=== PATIENT | female | born 1970 | race Caucasian/White ===

== ENCOUNTER 2024-03-15 06:21 | Emergency (ER) | payer OTHER, SELFPAY ==
--- NOTE | ~2024-03-15 | CT_ITS ---
CT abdomen pelvis w con Ordering provider: Sugey Islas MD History: 54 years Female with . epigastric TTP; also low pelvic firmness/mass? . Comparison: None. Technique: CT abdomen and pelvis with IV and without oral contrast. Automated exposure control and it erative reconstruction technique were employed. The dose-length product was 493.99 mGy-cm. 100 mL Omn ipaque 350 was given IV. Findings: VISUALIZED LOWER CHEST: Bilateral dependent atelectatic changes. UPPER ABDOMINAL ORGANS: Liver: Normal. Gallbladder: Normal. Spleen: Normal. Stomach/duodenum: Normal. Pancreas: Normal. Adrenals: Normal. Kidneys: 1.2 cm right mid pole cyst. PELVIC ORGANS: The bladder is normal. Enlarged uterus with mass seen anteriorly which is enhancing s uggestive of fibroid measuring 5.8 x 6.2 cm. Hemorrhagic changes is not excluded. Smaller fibroid als o seen anteriorly measuring 2.7 x 3.7 cm. Further evaluation advised. Right ovarian cyst is noted measuring 3.7 x 3.1 cm.. BOWEL AND MESENTERY: Colon: No evidence of diverticulitis. Normal appendix. Small Bowel: Normal. No obstruction. Peritoneum/mesentery: No free air or free fluid. No mesenteric lymphadenopathy. RETROPERITONEUM: Normal aorta. No retroperitoneal lymphadenopathy. MUSCULOSKELETAL: Superficial soft tissues: The superficial soft tissues are normal. Bones: Normal spine. IMPRESSION: 1. Large uterine fibroid with hyperdense center which is most likely hemorrhagic fibroid. Further ev aluation advised. Smaller one is also seen anteriorly. Right ovarian cyst. 2. No evidence of appendicitis, diverticulitis or intestinal obstruction Reviewed, dictated and finalized at location A. IMPRESSION: 1. Large uterine fibroid with hyperdense center which is most likely hemorrhag ic fibroid. Further evaluation advised. Smaller one is also seen anteriorly. Ri ght ovarian cyst. 2. No evidence of appendicitis, diverticulitis or intestinal obstruction
[2024-03-15 06:42] VITALS: BP 125/74; PULSE 80; RESP 18; O2SAT 100
[2024-03-15 07:09] LABS: Basophils Percent Auto 0.3 % (0.2-1.2); Eosinophils Absolute Auto 0.1 K/mm3 (0-0.3); Eosinophils Percent Auto 1.2 % (0-4.4); Hematocrit 38.8 % (37.0-47.0); Hemoglobin 12.4 g/dL (12.0-15.0); Immature Granulocyte Absolute 0.03 K/mm3 (0.00-0.031); Immature Granulocyte Percent A 0.3 % (0-0.5); Lymphocytes Absolute Auto 1.24 K/mm3 (0.9-3.2); Lymphocytes Percent Auto 14.4 % (18.3-44.2); Mean Corpuscular Hemoglobin 26.1 pg (26-34); Mean Corpuscular Volume 81.7 fl (80-100); Mean Platelet Volume 10.7 fl (7.4-10.4); Monocytes Absolute Auto 0.7 K/mm3 (0.1-0.6); Monocytes Percent Auto 7.6 % (2.6-8.5); Neutrophils Absolute Auto 6.5 K/mm3 (1.3-6.7); Neutrophils Percent Auto 76.2 % (45.5-73.1); Platelet Count Result 303 k/mm3 (150-375); Red Blood Count 4.75 M/mm3 (4.2-5.4); White Blood Count 8.6 K/mm3 (4.5-10.0)
--- NOTE | 2024-03-15 07:15 | ED.ABDPAIN ---
HPI - Abdominal Pain General Chief Complaint: Abdominal Pain Stated Complaint: medial upper abdominal pain Time Seen by Provider: 03/15/24 07:13 Source: patient and family Mode of arrival: ambulatory Limitations: no limitations History of Present Illness HPI narrative: Patient presents with complaint of epigastric abdominal pain starting on Thursday and progressively getting worse. She describes it as a dull pain in with waves of stabbing pain. She denies any radiation either into the rest of her abdomen, into her chest, or toward her back. She denies any chest pain. She states when she has waves of pain it is 9/10 in severity. This has never happened before. She has never seen a user interface designer or had an EGD. She denies any abdominal surgeries. She started taking Ozempic in November. She denies any cough, sick contacts. Her last bowel movement was yesterday at approximately 1:00 p.m. she denies any diarrhea, constipation, or blood. Her last oral intake was yesterday approximately 6:00 p.m.. She does not really have an appetite. No fevers. She continues to pass flatus. Related Data Allergies Allergy/AdvReac Type Severity Reaction Status Date / Time erythromycin base Allergy Mild RASH Verified 03/15/24 07:17 [facility] Family History Family History (Updated 07/24/20 @ 16:02 by Ilda Stewart MD) Father Diabetes mellitus Heart disease Hypertension Cancer of kidney Social History Social History Social History: Smoking status: Never smoker Second hand tobacco smoke exposure: No Alcohol intake: current Drinks per week: 2 Substance use: never Substance use type: does not use Living arrangements: with family Occupation/Education: occupation Gender identity (if verbalized by the patient): Female Sexual Orientation (if Verbalized by the Patient): Straight or Heterosexual Exam Narrative: GENERAL: Well-appearing, well-nourished, and in no acute distress. HEAD: Normocephalic, atraumatic. EYES: Non injected, non icteric ENT: Nares clear, no rhinorrhea or epistaxis. Slightly Tacky mucous membranes NECK: Supple. CHEST: Speaking in full sentences. No respiratory distress. HEART: Regular rate and rhythm. . ABDOMEN: Soft, nondistended. Very mild TTP at epigastrium but without rigidity or guarding. Nontender throughout the rest of the abdomen although there is a low pelvic mass versus firm uterus; no pain with palpation of this. Garner sign negative. EXTREMITIES: Normal range of motion. No edema. SKIN: Warm, dry, no rash. NEURO: No focal deficits. Alert and oriented x3. PSYCH: Normal mood and affect. Course Vital Signs Vital signs: Vital Signs Pulse Rate 80 03/15/24 06:42 Respiratory Rate 18 03/15/24 06:42 Blood Pressure 125/74 03/15/24 06:42 Pulse Oximetry 100 03/15/24 06:42 Oxygen Delivery Room Air 03/15/24 06:42 Temperature 97.7 F 03/15/24 07:19 Pulse Rate 82 03/15/24 09:30 Respiratory Rate 14 03/15/24 09:30 Blood Pressure 131/69 03/15/24 09:30 Pulse Oximetry 100 03/15/24 09:30 Oxygen Delivery Room Air 03/15/24 06:42 MDM - Abdominal Pain MDM Narrative Medical decision making narrative: Patient presents with epigastric abdominal pain since Thursday that has progressively been worsening. In the emergency department they are afebrile with vital signs within normal limits. Patient is reassessed after receiving initial medications (Zofran and Morphine) and IV fluids and had no change. Will proceed with CT imaging. Patient is reassessed at approximately 9:20 a.m.. She is feeling much better. She states she does take NSAIDs for her knee but hasn't been taking too many lately. No recent alcohol consumption but we discussed how either of these can exacerbate symptoms. Discussed incidental findings of fibroid and ovarian cyst seen on imaging. Will discharge patient with prescript
[2024-03-15 07:16] LABS: Appearance Urine Clear (Clear); Bacteria Urine None Seen /hpf; Bilirubin Urine Negative (Negative); Blood Urine Negative (Negative); Color Urine Yellow (Yellow); Glucose Urine UA Negative (Negative); Ketones Urine 3+ mg/dL (Negative); Leukocyte Esterase Ur Negative LEU/UL (Negative); Nitrate Urine Negative (Negative); Non Pathogenic Casts 0-2; Protein Urine Trace mg/dL (Negative); RBC Urine 0-2 /hpf (0-2); Specific Grav Ur 1.025 (1.001-1.035); Squamous Epithelial Cell Urine None Seen /hpf (Few); Urobilinogen Urine 0.2 mg/dL (<2.0); WBC Urine 0-5 /hpf (0-3)
[2024-03-15 07:19] VITALS: BP 126/71; PULSE 89; RESP 18; TEMP 36.5; O2SAT 100
[2024-03-15 07:20] LABS: Add Urine Microscopic? YES
[2024-03-15] MEDS: MORPHINE SULFATE (*CRX) 4 MG/ML INJ IV PUSH (07:28)
[2024-03-15] MEDS: ONDANSETRON INJ 4 MG/2 ML VIAL IV PUSH (07:28)
[2024-03-15] MEDS: SODIUM CHLORIDE 0.9% IV 1,000 ML 999 ML IV CONT (07:29)
[2024-03-15 07:33] LABS: Alanine Aminotransferase 15 U/L (6-35); Albumin Level 4.5 g/dL (3.5-5.1); Alkaline Phosphatase 60 U/L (38-126); Anion Gap 11 mmol/L (4-12); Aspartate Amino Transferase 24 U/L (14-36); Bilirubin,Total 0.4 mg/dL (0.2-1.3); Blood Urea Nitrogen 12 mg/dL (7-17); Calcium 9.1 mg/dL (8.4-10.2); Carbon Dioxide 24 mmol/L (22-30); Chloride 102 mmol/L (98-107); Estimated CRCL calculation 85 ml/min; Estimated Glomerular Filt Rate > 60; Glucose 91 mg/dL (65-110); Lipase 99 U/L (23-300); Potassium 3.8 mmol/L (3.4-5.0); Sodium 137 mmol/L (137-145)
--- NOTE | 2024-03-15 07:59 | ECG_ITS ---
Test Date: 2024-03-15 08:22:00 Measurements Intervals [place] Rate: 74 P: 59 WI: 117 QRS: 45 QRSD: 89 T: 43 QT: 385 QTc: 428 Interpretive Statements SINUS RHYTHM WITH SHORT WI INTERVAL BORDERLINE ST-T WAVE ABNORMALITY- INF/LAT LEADS BASELINE ARTIFACT- I, II, III, AVR, AVL, AVF, V1-V2 BORDERLINE ECG No previous ECG available for comparison Electronically Signed On 03-15-2024 08:35:44 CDT by Jude Davila D.O.
[2024-03-15 08:08] LABS: Pregnancy On Board Control Positive; Urine Pregnancy Test Negative
[2024-03-15] MEDS: HALOPERIDOL LACTATE 5 MG/ML VIAL 2.5 MG IV PUSH (08:13)
[2024-03-15] MEDS: FAMOTIDINE 20 MG/2 ML VIAL IV PUSH (08:13)
[2024-03-15 08:34] LABS: Lactic Acid Reflex 0.7 mmol/L (0.7-2.0)
[2024-03-15 08:47] LABS: Troponin I < 0.012 ng/mL (0.000-0.034)
[2024-03-15 09:30] VITALS: BP 131/69; PULSE 82; RESP 14; O2SAT 100
== END 2024-03-15 09:30 | disposition home or self-care (01) ==
PROVIDERS: Emergency Medicine; Emergency Provider Student in an Organized Health Care Education/Training Program; PCP Family Medicine
DX: R10.13 Epigastric pain (principal); D25.9 Leiomyoma of uterus, unspecified; N83.201 Unspecified ovarian cyst, right side; K29.70 Gastritis, unspecified, without bleeding
CPT/HCPCS: 36415; 74177; 80053; 81001; 81025; 83605; 83690; 84484; 85025; 93005; 96361; 96374; 96375; 99284; J1630; J2270; J2405; J7030; Q9967